=== PATIENT | female | born 1980 | race African-American/Black ===

== ENCOUNTER → 2016-04-07 16:00 | Emergency (ER) | payer OTHER | END | disposition left against medical advice (07) | LOC: CED 16:00 | DX: Z53.21 Procedure and treatment not carried out due to patient leaving prior to being seen by health care provider (principal) ==

== ENCOUNTER 2016-04-07 22:53 | Emergency (ER) | payer OTHER ==
--- NOTE | ~2016-04-07 | EKG ---
PATIENT: OSCAR HOFFMANN UNIT #: [id number] Ventricular Rate: 64 BPM Atrial Rate: 64 BPM P-R Interval: 162 ms QRS Duration: 76 ms Q-T Interval: 402 ms QTC Calculation(Bezet): 414 ms P [place]: 73 degrees Calculated R [place]: 18 degrees Calculated T [place]: 12 degrees Diagnosis Line: Normal sinus rhythm with sinus arrhythmia Diagnosis Line: Normal ECG Diagnosis Line: No previous ECGs available Diagnosis Line: Confirmed by LES SCHROEDER MD ([id number]) on 04/08/2016 Diagnosis Line: 4:45:00 PM INTERPRETING MD: ALEXANDRE FERNANDO
--- NOTE | ~2016-04-07 | CR72 ---
[facility] A Service of [facility] & [facility] RADIOLOGY TEXT RESULTS PATIENT: OSCAR HOFFMANN LOCATION: [facility] : 78 UNIT #: [id number] AGE: [address]: Jessica Ritchie MD SEX: F ORDER DR: [id number] [facility] [address]. [place], [place] [address] [id number] E MR#: [id number] Acc #: [id number] NAME: OSCAR HOFFMANN : 1980 SEX: F STUDY DATE/TIME: 04/07/2016 23:28 UNIT: [facility] ROOM: STUDY DESCRIPTION: CR Chest Single View Portable Attending Physician: Jessica Ritchie M.D. Ordering Physician: Jessica Ritchie M.D. Primary Care Physician: Primary Care Physician No MEDICAL IMAGING REPORT This report is preliminary unless electronic signature is present EXAM Portable AP view of the chest COMPARISON None INDICATIONS 35-year-old female with dizziness today. FINDINGS Heart size is likely within normal limits for portable technique but may be mildly enlarged. No evidence of pneumothorax or pleural effusion. There is diffuse prominence of pulmonary interstitium possibly reflecting mild bronchovascular crowding or pulmonary vascular congestion. IMPRESSION Questionable cardiomegaly, possibly accentuated and artifactually related to portable technique. No evidence of pneumothorax or pleural effusion. There may be mild pulmonary vascular congestion. No overt pulmonary edema. Dictated by... Casey Martinez M.D. THIS IS AN ELECTRONICALLY VERIFIED REPORT Casey Martinez M.D. at 04/12/2016 7:38 AM Giselle TD: 04/08/2016 07:27 JOB #: [id number] MEDICAL IMAGING REPORT COPY
[2016-04-07 23:14] LABS: POC - CKMB 33.5 ng/mL (0.0-7.9); POC - TROPONIN <0.05 ng/mL (<=0.05)
[2016-04-07 23:53] LABS: BASOPHIL% 0.3 % (0-2.5); EOSINOPHIL% 0.4 % (0.0-7.0); HEMATOCRIT 34.3 % (35.0-45.0); HEMOGLOBIN 10.8 gm/dL (12.0-16.0); LYMPHOCYTE% 24.2 % (17.0-45.0); MEAN CELL VOLUME 74.2 FL (83-96); MEAN CORPUSCULAR HEMOGLOBIN 23.4 PG (28-34); MEAN CORPUSCULAR HGB CONC 31.5 g/dL (30-36); MEAN PLATELET VOLUME 9.8 FL (6.5-11.5); MONOCYTE% 12.1 % (3.0-12.0); NEUTROPHIL# 5.3 X10e3 (1.5-7.1); PLATELET COUNT 182 X10e3 (140-420); RED BLOOD COUNT 4.62 X10e (3.90-5.30); RED CELL DISTRIBUTION WIDTH 16.4 % (11.0-15.5); WHITE BLOOD COUNT 8.4 X10e3 (4.0-10.5)
[2016-04-07 23:55] LABS: DIFF IND NO
[2016-04-08 00:14] LABS: ALBUMIN SERUM 3.7 g/dL (3.5-5.0); ALKALINE PHOSPHATASE 62 U/L (32-92); ALT (SGPT) 10 U/L (10-40); AST (SGOT) 12 U/L (10-42); BILIRUBIN,TOTAL 0.2 mg/dL (0.2-2.0); BLOOD UREA NITROGEN 6 mg/dL (9-23); BUN/CREATININE RATIO 6.66; CALCIUM SERUM 9.1 mg/dL (8.4-10.2); CARBON DIOXIDE 26 mmol/L (22-31); CHLORIDE 104 mmol/L (100-111); CREATININE SERUM 0.9 mg/dL (0.6-1.4); GLOM FILT RATE Estimated ABOVE60 mL/min (>60); GLUCOSE FASTING 106 mg/dL (70-110); POTASSIUM 3.8 mmol/L (3.5-5.1); PROTEIN TOTAL SERUM 7.1 g/dL (6.0-8.3); SODIUM 137 mmol/L (135-145)
[2016-04-08 00:22] LABS: BILIRUBIN, DIRECT 0.1 mg/dL (0.0-0.2); BILIRUBIN,INDIRECT 0.1 mg/dL (0.0-0.9)
== END 2016-04-08 00:59 | disposition home or self-care (01) ==
LOC: CED 22:53
PROVIDERS: Emergency Medicine
DX: R42 Dizziness and giddiness (principal); I10 Essential (primary) hypertension; Z90.89 Acquired absence of other organs
CPT/HCPCS: 71010; 80048; 80076; 82553; 84484; 84703; 85025; 93005; 99283